=== PATIENT | male | born 2000 | race Caucasian/White ===

== ENCOUNTER 2021-03-07 23:25 | Emergency (ER) | payer OTHER ==
[~2021-03-07] VITALS: Ht 188 cm; Wt 94.3 kg
[2021-03-07 23:28] VITALS: BP 133/92
--- NOTE | 2021-03-08 00:19 | NUR ---
PATIENT AMBULATED TO BED 5 WITH A STEADY GAIT
[2021-03-08 01:18] LABS: BASOPHILS % (AUTO) 0.5 % (0.0-2.0); EOSINOPHILS # (AUTO) 0.1 K/uL (0-0.4); EOSINOPHILS % (AUTO) 0.8 % (0.0-4.0); HEMATOCRIT 41.1 % (36-52); LYMPHOCYTES # (AUTO) 2.4 K/uL (2.0-11.5); LYMPHOCYTES % (AUTO) 31.5 % (20.5-51.1); MEAN CORPUSCULAR HEMOGLOBIN 28 pg (27-31); MEAN CORPUSCULAR HGB CONC 34 g/dL (33-37); MEAN CORPUSCULAR VOLUME 82.8 fL (80-94); MONOCYTES # (AUTO) 0.7 K/uL (0.8-1.0); NEUTROPHILS # (AUTO) 4.5 K/uL (1.8-7.7); NEUTROPHILS % (AUTO) 58.2 % (42.2-75.2); PLATELET COUNT (AUTO) 219 K/uL (140-450); RED BLOOD CELL COUNT(AUTO) 4.97 MIL/uL (4.20-6.10); RED CELL DISTRIBUTION WIDTH 15.7 % (11.6-13.7); WHITE BLOOD COUNT (AUTO) 7.8 K/uL (4.5-11.0)
--- NOTE | 2021-03-08 01:23 | NUR ---
WALKED URINE TO LAB
[2021-03-08 01:33] LABS: ALBUMIN 4.2 g/dL (3.4-5.0); ANION GAP 10.7 (8-16); CARBON DIOXIDE 28.7 mmol/L (21-32); POTASSIUM 4.4 mmol/L (3.5-5.1); TOTAL BILIRUBIN 0.3 mg/dL (0.0-1.0)
[2021-03-08 01:48] LABS: BARBITURATE, URINE NEGATIVE ng/ml (NEG <=200); BENZODIAZEPINE, URINE NEGATIVE ng/mL (NEG <=200); CANNABINOID, URINE POSITIVE ng/mL (NEG <=50); COCAINE, URINE NEGATIVE ng/mL (NEG <=300); OPIATE, URINE NEGATIVE ng/mL (NEG <=2000); PHENCYCLIDINE SCREEN,URINE NEGATIVE ng/mL (NEG <=25)
--- NOTE | 2021-03-08 02:00 | NUR ---
PT 20 Y/O MALE BIB GIRLFRIEND W/ C/O CHEST PAIN THAT RADIATES TO BACK OF NECK FOR 2X DAYS. PT STATES THAT WHEN HE BREATHES IN HE FEELS A SHARP PAIN IN HIS CHEST AND IT LINGERS FOR AWHILE AND THEN THE BACK OF HIS NECK WILL START TO [place]. PT STTAES THAT LAYING DOWN HELPS TO RELIEVE SOME OF THE PAIN BUT STANDING BACK UP HURTS. PT STATES PAIN 5/10. PT STATES BECAUSE OF THE PAIN WHEN HE INHALES HE DOES FEEL SOME SHORTNESS OF BREATH BUT 02 SAT IS 98%. PT STATES THAT BACK INJ SEPTEMBER HE HAD OPEN HEART SURGERY FOR SEPSIS THAT TURNED INTO ENDOCARDITIS. PT STATES HAVING A BICUSPID VALVE REPAIR . PREVIOUS HX: ENDOCARDITIS/ SEPSIS IN SEPTEMBER, HEART SURGERY. PT IS COVID VACCINATED BUT IS WAITING TO GET 2ND DOSE DUE TO HEART CONDITION. MEDS: IBUPROFEN. MARIJUANA EDIBLES TO SLEEP SOCIAL HX: PT SMOKES MARIJUANA A COUPLE TIMES A MONTH. EATS EDIBLES OFTEN. DRINKS ALCOHOL RARELY.
[2021-03-08] MEDS ORDERED: KETOROLAC 30 MG/ML VIAL IVP ONE (04:30)
[2021-03-08 04:50] VITALS: BP 109/58
--- NOTE | 2021-03-08 04:50 | NUR ---
Patient discharged with v/s stable. Written and verbal after care instructions given and explained. Patient verbalized understanding. Ambulatory with steady gait. All questions addressed prior to discharge. Advised to follow up with PMD.
== END 2021-03-08 04:50 | disposition home or self-care (01) ==
LOC: MED 23:25
DX: R07.89 Other chest pain (principal); Z98.890 Other specified postprocedural states
CPT/HCPCS: 36415; 71045; 71275; 80053; 80305; 84484; 85025; 85379; 93005; 96374; 99285; J1885; Q9967; 99283